=== PATIENT | male | born 1955 | race Caucasian/White ===

== ENCOUNTER 2017-08-04 11:10 | Inpatient (IN) | payer OTHER ==
--- NOTE | 2017-08-04 11:29 | PDOC ---
History of Present Illness - General Chief Complaint: Shortness of Breath Stated Complaint: SHORT OF BREATH Time Seen by Provider: 08/04/17 11:27 - History of Present Illness Initial Comments: 08/04/17 11:39 Chief complaint: Nasal congestion History of present illness: Patient was sent in by his primary physician for low oxygen saturation. During a routine office visit, oxygen saturation was noted to be in the high 80s, decreasing to the low 80s with ambulation. The patient denies chest pain or shortness of breath. His respiratory status is reported as normal. His only complaint is chronic nasal congestion for which she has been evaluated by ENT and begun on antibiotics for sinusitis. Review of systems: As noted above. No chest pain, shortness of breath, dyspnea on exertion, orthopnea, PND, fever/chills, cough, abdominal pain, nausea, vomiting, diarrhea, visual or focal neurologic symptoms, unsteadiness of gait. No calf pain swelling or tenderness. Past medical history: Chronic neck injury on disability. Insulin-dependent diabetes. Chronic sinusitis. No known lung disease including asthma, COPD, emphysema. 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 Smoker, one to 2 packs per day for many years, occasional social alcohol , none recently, no drugs. a stable home Family history: Mother of myocardial infarction in her mid 60s. Otherwise negative including father and siblings. Physical exam: Alert oriented 3, mildly obese, no acute distress, cheerful and cooperative. Afebrile, vital signs stable including oxygen saturation 95% at rest. PERRLA 4 mm, fundi benign with sharp disc margins and good central venous pulsations, no hemorrhages or exudates. Ears and throat clear. Moderate nasal congestion is present bilaterally, without discharge. No obstruction noted on examination. Neck supple without bruit mass or nodes Lungs with bilateral end expiratory wheezes, all lung bethea. No rales or rhonchi. Respiratory rate normal. CV S1 and S2 distant, regular, without murmur rub or gallop, pulses full and symmetric, no JVD or edema no posterior calf swelling or tenderness Abdomen soft nontender without mass or organomegaly Extremities no CCE Skin clear, no rash, adequate turgor and wet mucous membranes Neurological C2 to 12 intact. No focal sensory or motor deficits. Strength full and symmetric. Gait stable and unimpaired. Impression: Marked nasal congestion, chronic sinusitis. Low oxygen saturation, with wheezing, probably due to COPD, less likely pulmonary emboli or acute coronary syndrome Plan: CBC, chemistries, EKG, chest x-ray, further evaluation depending on results. Monitor, oxygen therapy. Past History - Past Medical History Allergies/Adverse Reactions: Allergies Allergy/AdvReac Type Severity Reaction Status Date / Time codeine AdvReac Mild Verified 08/04/17 11:52 Home Medications: Ambulatory Orders Sennosides [Senna Lax] 8.6 mg PO 2 tablets bid tablet 07/24/16 Cefdinir 300 mg PO BID 08/04/17 Cetirizine HCl [Zyrtec -] 10 mg PO DAILY 08/04/17 Docusate Sodium [Colace] 100 mg PO DAILY 08/04/17 Docusate Sodium [Colace] 300 mg PO HS 08/04/17 Insulin Glargine,Hum.rec.anlog [Lantus Solostar PEN (NF)] 18 units SQ AM Metformin HCl [Glucophage] 1,000 mg PO DAILY 08/04/17 Metformin HCl [Glucophage] 500 mg PO HS 08/04/17 Montelukast Na [Singulair -] 10 mg PO HS 08/04/17 Oxycodone HCl 20 mg PO Q6H PRN 08/04/17 Simvastatin 40 mg PO HS 08/04/17 Asthma: Yes COPD: Yes Diabetes: Yes Hypercholesterolemia: Yes - Immunization History Immunization Up to Date: No - Suicide/Smoking/Psychosocial Hx Smoking History: Current every day smoker Have you smoked in the past 12 months: Yes Number of Cigarettes Smoked Daily: 4 'Breaking Loose' booklet given: 08/22/14 Hx Alcohol Use: No Substance Use Type: None ED Treatment Course - LABORATORY CBC & Chemistry Diagram: 08/04/17 12:10 08/04/17 12:10 Medical Decision Making - Medical Decision Making 08/04/17 13:01 EKG reviewed: Normal sinus rhythm 69/m. Normal axes and intervals. Nonspecific T -wave abnormality. No acute ST elevations. No change from prior dated 2015 obtained from primary physician office by fax 08/04/17 13:10 08/04/17 14:33 Chest x-ray: COPD, no acute infiltrates, no effusions Cardiac enzymes negative. White blood count normal. Mild anemia is present. Chemistries without significant abnormalities. Patient's wheezing is improved with nebulizer treatment. He is already on oral cephalosporin for sinusitis. This should cover acute bronchitis. He will be admitted for further evaluation and treatment. *DC/Admit/Observation/Transfer Diagnosis at time of Disposition: Acute exacerbation of chronic bronchitis - Discharge Dispostion Condition at time of disposition: Stable Admit: Yes - Referrals - Patient Instructions - Post Discharge Activity
[2017-08-04] MEDS ORDERED: ALBUTEROL SO4 2.5/IPRATROPIUM 0.5 INH SOL 3 ML VIAL.NEB. NEB ONE ×4 (11:38→14:14)
[2017-08-04 12:38] LABS: EOS % 5.9 % (0-4.5); HEMATOCRIT 31.5 % (35.4-49); HEMOGLOBIN 10.6 GM/dl (11.7-16.9); LYMPH % 27.3 % (8-40); MCH 29.3 pg (25.7-33.7); MCHC 33.7 g/dl (32.0-35.9); MEAN CELL VOLUME 86.9 fl (80-96); MEAN PLT VOLUME 7.2 fl (7.5-11.1); MONO % 9.4 % (3.8-10.2); NEUT % 56.4 % (42.8-82.8); PLATELET COUNT 341 K/MM3 (134-434); RBC 3.63 M/mm3 (4.00-5.60); RDW 11.7 % (11.9-15.9); WHITE BLOOD COUNT 8.7 K/mm3 (4.0-10.8)
[2017-08-04 12:59] LABS: ALBUMIN 3.7 g/dl (3.5-5.0); ALK PHOS 31 U/L (32-92); ANION GAP 6 (8-16); BILIRUBIN,TOTAL 0.4 mg/dl (0.2-1.0); BLOOD UREA NITROGEN 50 mg/dl (7-18); CHLORIDE 102 mmol/L (98-107); CO2 25 mmol/L (22-28); CREATININE 2.2 mg/dl (0.6-1.3); GLUCOSE,RANDOM 144 mg/dl (74-106); POTASSIUM 4.3 mmol/L (3.5-5.1); SGOT/AST 17 U/L (10-42); SGPT/ALT 13 U/L (10-40); SODIUM 133 mmol/L (136-145)
[2017-08-04] MEDS ORDERED: SODIUM CHLORIDE 500 ML IV STA (13:26)
[2017-08-04 13:57] LABS: URINE APPEARANCE Clear; URINE BILIRUBIN Negative (NEGATIVE); URINE BLOOD Negative (NEGATIVE); URINE COLOR YELLOW; URINE GLUCOSE (UA) Negative (NEGATIVE); URINE KETONE Negative (NEGATIVE); URINE LEUK ESTERASE Negative (NEGATIVE); URINE NITRITE Negative (NEGATIVE); URINE PROTEIN Negative (NEGATIVE); URINE UROBILINOGEN 0.2 (0.2-1.0)
--- NOTE | 2017-08-04 15:00 | CON.PULM ---
Consult Consult Specialty:: PULMONARY Referred by:: RICHARD Reason for Consultation:: ACUTE A/E COPD - History of Present Illness Chief Complaint: SOB/BRANCH/NASAL CONGESTION History of Present Illness: 62 WHITE MALE ACTIVE SMOKER WITH H/O DM/HTN/CHRONIC NECK PAIN DUE TO HNP / OPIATE DEPENDANT /COPD/ACTIVE SMOKER L5-S1 RADICULOPATHY/VIT D DEF./HPL/BPH/LOW TESTERONE/ANEMIA OF UNKNOWN ETIOLOGY PRESENTS TO OUTPATIENT CLINIC WITH SOB ON EXERTION. FOUND TO HAVE A RESTING SPO2 OF 87% AND SPO2 82% AFTER BRIEF AMBULATION. PATIENT DOES NOT HAVE HOME O2. HE HAS A CHRONIC COUGH AND REPORTS APNEIC EPISODES AT NIGHT WHILE ASLEEP. HE HAS CHRONIC PAIN IN NECK AND LIMITED ROM. HE IS OPIATE DEPENDANT ON 30 MG OXYCONTIN 4-6 TIMES DAILY. - History Source History Provided By: Patient, Family Member, Medical Record Limitations to Obtaining History: Clinical Condition - Past Medical History EXHIBIT PREPARATOR: Yes: Other (HEADACHES). No: Alzheimer's Cardio/Vascular: Yes: HTN, Hyperlipdemia. No: AFIB, MT Pulmonary: Yes: COPD, Pneumonia, Sleep Apnea, Other (CHRONIC SINUSITIS). No: O2 Dependent Gastrointestinal: No: Ascites Hepatobiliary: No: Cirrhosis Renal/: Yes: Renal Inusuff, BPH Heme/Onc: Yes: Anemia Psych: Yes: Depression Musculoskeletal: Yes: Chronic low back pain, Other (CERVICAL SPINE PAIN) Rheumatology: Yes: Other (HNP C-SPINE) ENT: Yes: Sinusitis Endocrine: Yes: Diabetes Mellitus (KNEE SURGERY) - Past Surgical History Additional Surgical History: KNEE SURGERY/FRACTURED JAW/CERVICAL EPIDURAL INJECTIONS - Alcohol/Substance Use Hx Alcohol Use: No - Smoking History Smoking history: Current every day smoker Have you smoked in the past 12 months: Yes Aproximately how many cigarettes per day: 4 - Social History Usual Living Arrangement: With Spouse Place of : [facility] History of Recent Travel: No Home Medications - Allergies Allergies/Adverse Reactions: Allergies Allergy/AdvReac Type Severity Reaction Status Date / Time codeine AdvReac Mild Verified 08/04/17 11:52 - Home Medications Home Medications: Ambulatory Orders Sennosides [Senna Lax] 8.6 mg PO 2 tablets bid tablet 07/24/16 Cefdinir 300 mg PO BID 08/04/17 Cetirizine HCl [Zyrtec -] 10 mg PO DAILY 08/04/17 Docusate Sodium [Colace] 100 mg PO DAILY 08/04/17 Docusate Sodium [Colace] 300 mg PO HS 08/04/17 Insulin Glargine,Hum.rec.anlog [Lantus Solostar PEN (NF)] 18 units SQ AM Metformin HCl [Glucophage] 1,000 mg PO DAILY 08/04/17 Metformin HCl [Glucophage] 500 mg PO HS 08/04/17 Montelukast Na [Singulair -] 10 mg PO HS 08/04/17 Oxycodone HCl 20 mg PO Q6H PRN 08/04/17 Simvastatin 40 mg PO HS 08/04/17 Family Disease History - Family Disease History Family History: Unremarkable Review of Systems - Review of Systems Constitutional: reports: Lethargy. denies: Fever Eyes: denies: Blurred Vision HENT: denies: Difficult Swallowing Neck: reports: Decreased ROM, Pain on Movement, Stiffness, Tenderness. denies: Swollen Glands Cardiovascular: reports: Shortness of Breath. denies: Chest Pain Respiratory: reports: Cough, Exercise Intolerance, Orthopnea, SOB, SOB on Exertion, Wheezing. denies: Hemoptysis Gastrointestinal: denies: Abdominal Pain Genitourinary: denies: Burning Breasts: reports: No Symptoms Reported Musculoskeletal: reports: Back Pain Neurological: reports: Headache, Pre-Existing Deficit Endocrine: reports: No Symptoms Physical Exam Vital Sings: Vital Signs Temperature 98.4 F 08/04/17 11:25 Pulse Rate 74 08/04/17 13:48 Respiratory Rate 14 08/04/17 13:48 Blood Pressure 100/70 08/04/17 13:48 O2 Sat by Pulse Oximetry (%) 91 L 08/04/17 13:48 Constitutional: Yes: Anxious Eyes: Yes: EOM Intact HENT: Yes: Normocephalic Neck: Yes: Trachea Midline Cardiovascular: Yes: Regular Rate and Rhythm, S1, S2 Respiratory: Yes: Diminished Gastrointestinal: Yes: Normal Bowel Sounds, Soft Musculoskeletal: Yes: Back Pain, Joint Stiffness, Other (C-SPINE DECREASED ROM/ CHRONIC PAIN) Edema: No Psychiatric: Yes: Alert Labs: CBC, BMP 08/04/17 12:10 08/04/17 12:10 REST REVIEWED Imaging - Results Chest X-ray: Report Reviewed, Image Reviewed Ultrasound: Pending Problem List - Problems (1) COPD exacerbation Code(s): J44.1 - CHRONIC OBSTRUCTIVE PULMONARY DISEASE W (ACUTE) EXACERBATION (2) Acute on chronic respiratory failure with hypoxemia Code(s): J96.21 - ACUTE AND CHRONIC RESPIRATORY FAILURE WITH HYPOXIA (3) Anemia Code(s): D64.9 - ANEMIA, UNSPECIFIED (4) Opiate dependence Code(s): F11.20 - OPIOID DEPENDENCE, UNCOMPLICATED (5) BPH (benign prostatic hyperplasia) Code(s): N40.0 - BENIGN PROSTATIC HYPERPLASIA WITHOUT LOWER URINRY TRACT SYMP (6) HTN (hypertension) Code(s): I10 - ESSENTIAL (PRIMARY) HYPERTENSION (7) Hyperlipidemia Code(s): E78.5 - HYPERLIPIDEMIA, UNSPECIFIED (8) HNP (herniated nucleus pulposus) with myelopathy, cervical Code(s): M50.00 - CERVICAL DISC DISORDER WITH MYELOPATHY, UNSP CERVICAL REGION (9) Smoker Code(s): F17.200 - NICOTINE DEPENDENCE, UNSPECIFIED, UNCOMPLICATED Assessment/Plan COMPLICATED PATIENT WITH MULTIPLE ACTIVE MEDICAL PROBLEMS PRESENTS WITH ACUTE ON CHRONIC HYPOXEMIC RESP FAILURE WHICH REQUIRED ADMISSION AND TREATMENT ACTIVE SMOKER WITH COPD/OPIATE DEPENDANCE DUE TO HNP C-SPINE WILL LIKELY NEED HOME O2 UPON DISCHARGE TRIAL OF STEROIDS/O2 SUPPLEMENTATION/BRONCHODILATORS/ANTIBIOTICS/ENT EVALUATION/ PAIN MANAGEMENT WILL NEED A OSAS SCREEN AND PSG/PFT AN OUTPATIENT WOULD NOT INTERRUPT OPIATE DOSE OR SCHEDULE WOULD ALSO SUGGEST STOOL GUIAC PATIENT HAS HGB10 R ELSIE MOBLEY
[2017-08-04 16:14] VITALS: BMI 29.5
[2017-08-04] MEDS: ALBUTEROL SO4 2.5/IPRATROPIUM 0.5 INH SOL 3 ML VIAL.NEB. NEB SCH ×2 (16:14→23:45)
[2017-08-04] MEDS: CEFTRIAXONE 1 GM in DEXTROSE 5%-WATER - 50 ML IVPB SCH (17:44)
[2017-08-04] MEDS: methylPREDNISolone NA SUCC 40 MG/1 ML VIAL IVPUSH SCH ×2 (17:44→21:50)
[2017-08-04] MEDS: oxyCODONE HCL 5 MG TABLET PO SCH ×2 (17:47→23:43)
[2017-08-04] MEDS ORDERED: PT OWN MED DRAWER 7, Y5N ONE (21:46)
[2017-08-04] MEDS: SENNOSIDES 8.6MG TABLET (FP) PO SCH (21:50)
[2017-08-04] MEDS: GABAPENTIN 300 MG CAPSULE (FP) PO SCH (21:50)
[2017-08-04] MEDS: HEPARIN NA (PORCINE) 5,000 UNITS/ML 1ML VIAL SQ SCH (21:51)
[2017-08-04] MEDS: ATORVASTATIN CA 20 MG TABLET (FP) PO SCH (21:51)
[2017-08-04] MEDS: MONTELUKAST NA 10 MG TABLET PO SCH (21:51)
[2017-08-04] MEDS: DOCUSATE SODIUM 100 MG CAPSULE (FP) PO SCH (21:51)
[2017-08-04] MEDS ORDERED: PATIENT'S OWN MEDICATION (NON-FORMULARY) (Simvastatin [Simvastatin] 40 MG) PO SCH (22:00)
[2017-08-04] MEDS: BUDESONIDE/FORMETEROL FUMARATE 160/4.5 mcg INHALER IH SCH (23:45)
--- NOTE | 2017-08-04 23:56 | HP ---
CHIEF COMPLAINT: hypoxia PCP: Twyla HISTORY OF PRESENT ILLNESS: This is a 62 year old male with a significant past medical history of COPD, ENRIQUE who presented to the ED from his PCP office with oxygen saturation in 80s. He denies SOB on exam; however, Dr. Wakefield's note reflects an earlier compaint of SOB on exertion. Pt denies chest pain. ER course was notable for: (1) ox sat 88 RA (2) WBC 8.7 (3) CXR without acute lung disease Recent Travel: pt denies PAST MEDICAL HISTORY: HLD, anemia, DM, COPD, ENRIQUE, chronic neck pain s/p injury Pt denies h/o HTN PAST SURGICAL HISTORY: knee surgery, fractured jaw Social History: Smokin/4 ppd Alcohol: prior Drugs: pt denies Family History: mother ag e76, ovarian CA, [place] age 70 father age 74, lung CA + h/o smoking, abd aneurysm 1 sister/1 brother/1 daughter all alive and well, no PMH Allergies codeine Adverse Reaction (Mild, Verified 08/04/17 11:52) HOME MEDICATIONS: 3 Medication Instructions Recorded Sennosides [Senna Lax] 8.6 mg PO 2 tablets bid tablet 07/24/16 Cefdinir 300 mg PO BID 08/04/17 Cetirizine HCl [Zyrtec -] 10 mg PO DAILY 08/04/17 Docusate Sodium [Colace] 100 mg PO DAILY 08/04/17 Docusate Sodium [Colace] 300 mg PO HS 08/04/17 Insulin Glargine,Hum.rec.anlog 18 units SQ AM 08/04/17 [Lantus Solostar PEN (NF)] Metformin HCl [Glucophage] 1,000 mg PO DAILY 08/04/17 Metformin HCl [Glucophage] 500 mg PO HS 08/04/17 Montelukast Na [Singulair -] 10 mg PO HS 08/04/17 Oxycodone HCl 20 mg PO Q6H PRN 08/04/17 Simvastatin 40 mg PO HS 08/04/17 REVIEW OF SYSTEMS CONSTITUTIONAL: Absent: fever, chills, diaphoresis, generalized weakness, malaise, loss of appetite, weight change HEENT: Absent: rhinorrhea, nasal congestion, throat pain, throat swelling, difficulty swallowing, mouth swelling, ear pain, eye pain, visual changes CARDIOVASCULAR: Absent: chest pain, syncope, palpitations, irregular heart rate, lightheadedness , peripheral edema RESPIRATORY: Present: cough, dyspnea with exertion Absent: shortness of breath, orthopnea, wheezing, stridor, hemoptysis GASTROINTESTINAL: Absent: abdominal pain, abdominal distension, nausea, vomiting, diarrhea, constipation, melena, hematochezia GENITOURINARY: Absent: dysuria, frequency, urgency, hesitancy, hematuria, flank pain, genital pain MUSCULOSKELETAL: Absent: myalgia, arthralgia, joint swelling, back pain, neck pain SKIN: Absent: rash, itching, pallor HEMATOLOGIC/IMMUNOLOGIC: Absent: easy bleeding, easy bruising, lymphadenopathy, frequent infections ENDOCRINE: Absent: unexplained weight gain, unexplained weight loss, heat intolerance, cold intolerance NEUROLOGIC: Absent: headache, focal weakness or paresthesias, dizziness, unsteady gait, seizure, mental status changes, bladder or bowel incontinence PSYCHIATRIC: Absent: anxiety, depression, suicidal or homicidal ideation, hallucinations. PHYSICAL EXAMINATION Vital Signs - 24 hr 3 08/04/17 08/04/17 08/04/17 11:25 12:23 13:48 Temperature 98.4 F Pulse Rate 71 70 Pulse Rate [ 74 Apical] Respiratory 14 Rate Blood Pressure 134/71 Blood Pressure 100/70 [Left Arm] O2 Sat by Pulse 88 L 91 L Oximetry (%) 3 08/04/17 08/04/17 15:57 18:43 Temperature 97.7 F 97.9 F Pulse Rate 72 71 Pulse Rate [ Apical] Respiratory 16 19 Rate Blood Pressure 117/34 147/57 Blood Pressure [Left Arm] O2 Sat by Pulse Oximetry (%) GENERAL: Awake, alert, and fully oriented, in no acute distress. HEAD: Normal with no signs of trauma. EYES: Pupils equal, round and reactive to light, extraocular movements intact, sclera anicteric, conjunctiva clear. No lid lag. EARS, NOSE, THROAT: Ears normal, nares patent, oropharynx clear without exudates. Moist mucous membranes. NECK: Normal range of motion, supple without lymphadenopathy, JVD, or masses. LUNGS: Breath sounds equal, coarse breath sounds bilaterally, occ exp wheeze. No accessory muscle use. HEART: Regular rate and rhythm, normal S1 and S2 without murmur, rub or gallop. ABDOMEN: Soft, nontender, not distended, normoactive bowel sounds, no guarding, no rebound, no masses. No hepatomegaly or splenomegaly. MUSCULOSKELETAL: Normal range of motion at all joints. No bony deformities or tenderness. No CVA tenderness. UPPER EXTREMITIES: 2+ pulses, warm, well-perfused. No cyanosis. No clubbing. No peripheral edema. LOWER EXTREMITIES: 2+ pulses, warm, well-perfused. No calf tenderness. No peripheral edema. NEUROLOGICAL: Cranial nerves II-XII intact. Normal speech. Normal gait. PSYCHIATRIC: Cooperative. Good eye contact. Appropriate mood and affect. SKIN: Warm, dry, normal turgor, no rashes or lesions noted, normal capillary refill. Laboratory Results - last 24 hr 3 08/04/17 08/04/17 08/04/17 12:10 12:10 12:10 13:45 WBC 8.7 RBC 3.63 L Hgb 10.6 L Hct 31.5 L MCV 86.9 MCH 29.3 MCHC 33.7 RDW 11.7 L Plt Count 341 MPV 7.2 L Neutrophils % 56.4 Lymphocytes % 27.3 Monocytes % 9.4 Eosinophils % 5.9 H Basophils % 1.0 D-Dimer 502 H Sodium 133 L Potassium 4.3 Chloride 102 Carbon Dioxide 25 Anion Gap 6 L BUN 50 H D Creatinine 2.2 H D Creat Clearance w eGFR 30.68 Random Glucose 144 H D Calcium 9.0 Total Bilirubin 0.4 D AST 17 D ALT 13 Alkaline Phosphatase 31 L Creatine Kinase 107 Troponin I < 0.03 Total Protein 7.0 Albumin 3.7 Urine Color Urine Appearance Urine pH Ur Specific [place] Urine Protein Urine Glucose (UA) Urine Ketones Urine Blood Urine Nitrite Urine Bilirubin Urine Urobilinogen Ur Leukocyte Esterase 3 Urine Color Yellow 08/04/17 13:40 Urine Appearance Clear 08/04/17 13:40 Urine pH 5.0 (4.5-8) 08/04/17 13:40 Ur Specific [place] 1.025 (1.005-1.025) 08/04/17 13:40 Urine Protein Negative (NEGATIVE) 08/04/17 13:40 Urine Glucose (UA) Negative (NEGATIVE) 08/04/17 13:40 Urine Ketones Negative (NEGATIVE) 08/04/17 13:40 Urine Blood Negative (NEGATIVE) 08/04/17 13:40 Urine Nitrite Negative (NEGATIVE) 08/04/17 13:40 Urine Bilirubin Negative (NEGATIVE) 08/04/17 13:40 Ur Leukocyte Esterase Negative (NEGATIVE) 08/04/17 13:40 Radiology Reports venous duplex, b/l LE IMPRESSION: No evidence of deep venous thrombosis. R eported By: Jj Sterling MD 08/04/17 1458 CXR-PA&Lat IMPRESSION: No significant interval change or acute lung disease is present Reported By: Henri Grant MD 08/04/17 1222 ASSESSMENT/PLAN 62yM with PMH HLD, anemia, DM, COPD, ENRIQUE, chronic neck pain s/p injury presented to the ED from his PCP office for hypoxia. Also reports chronic cough. COPD exac - cont ceftriaxone as ordered - cont methylprednisolone - cont duonebs - cont symbicort - pulm consult appreciated ENRIQUE - will need outpatient sleep study DM - home lantus changed to formulary levemir - metformin held - BGM AC/HS with novolog sliding scale HLD - home simvastatin converted to formulary lipitor chronic neck pain - cont home oxycodone DVT PPX - heparin 5000u BID FEN - pt tolerating po - BMP in am - diabetic diet as tolerated Dispo: pt currently requires inpatient management of his emergent condition. Visit type - Emergency Visit Emergency Visit: Yes ED Registration Date: 08/04/17 Care time: The patient presented to the Emergency Department on the above date and was hospitalized for further evaluation of their emergent condition. - New Patient This patient is new to me today: Yes Date on this admission: 08/04/17 - Critical Care Critical Care patient: No Hospitalist Screening - Colonoscopy Questionnaire Colonoscopy Questionnaire: Colonoscopy Questionnaire - Patient: 50 - 75 years old and never had a screening colonoscopy: No History of colon or rectal polyps, or CA: No History of IBD, Crohn's disease or UC: No History of abdominal radiation therapy as a child: No - Relative: 1 with colon or rectal CA, or polyps at age 60 or younger: No Colon or rectal CA diagnosed at age 45 or younger: No Multiple relatives with colon or rectal CA: No - Outcome: Screening Result: Negative Screen
[2017-08-05] MEDS: methylPREDNISolone NA SUCC 40 MG/1 ML VIAL IVPUSH SCH ×4 (02:58→22:17)
[2017-08-05] MEDS: oxyCODONE HCL 5 MG TABLET PO SCH ×2 (05:53→12:00)
[2017-08-05] MEDS ORDERED: INSULIN GLARGINE HUM REC ANLOG 18 UNIT SQ SCH (07:00)
--- NOTE | 2017-08-05 07:04 | PN ---
Physical Exam: SUBJECTIVE: Patient seen and examined, patient reports ongoing cough with dyspnea upon exertion. OBJECTIVE: Patient is a 62 y/o male with a past medical history of hypertension, depression, tobacco smoker, and DM. Patient was admitted from the emergency department for emergent condition. Vital Signs Period Temp Pulse Resp BP Sys/Mercedes Pulse Ox Last 24 Hr 97.7 F-98.4 F 70-74 14-19 100-147/34-71 88-92 GENERAL: The patient is awake, alert, and fully oriented, in no acute distress. HEAD: Normal with no signs of trauma. EYES: PERRL, extraocular movements intact, sclera anicteric, conjunctiva clear. No ptosis. ENT: Ears normal, nares patent, oropharynx clear without exudates, moist mucous membranes. NECK: Trachea midline, full range of motion, supple. LUNGS: Breath sounds equal, right upper lobe inspiratory wheeze, clear to bases , no crackles, no accessory muscle use. HEART: Regular rate and rhythm, S1, S2 without murmur, rub or gallop. ABDOMEN: Soft, nontender, nondistended, normoactive bowel sounds, no guarding, no rebound, no hepatosplenomegaly, no masses. EXTREMITIES: 2+ pulses, warm, well-perfused, no edema. NEUROLOGICAL: Cranial nerves II through XII grossly intact. Normal speech, gait not observed. PSYCH: Normal mood, normal affect. SKIN: Warm, dry, normal turgor, no rashes or lesions noted Laboratory Results - last 24 hr 08/04/17 08/04/17 08/04/17 12:10 12:10 12:10 WBC 8.7 RBC 3.63 L Hgb 10.6 L Hct 31.5 L MCV 86.9 MCH 29.3 MCHC 33.7 RDW 11.7 L Plt Count 341 MPV 7.2 L Neutrophils % 56.4 Lymphocytes % 27.3 Monocytes % 9.4 Eosinophils % 5.9 H Basophils % 1.0 D-Dimer Sodium 133 L Potassium 4.3 Chloride 102 Carbon Dioxide 25 Anion Gap 6 L BUN 50 H D Creatinine 2.2 H D Creat Clearance w eGFR 30.68 POC Glucometer Random Glucose 144 H D Calcium 9.0 Total Bilirubin 0.4 D AST 17 D ALT 13 Alkaline Phosphatase 31 L Creatine Kinase 107 Troponin I < 0.03 Total Protein 7.0 Albumin 3.7 Urine Color Urine Appearance Urine pH Ur Specific [place] Urine Protein Urine Glucose (UA) Urine Ketones Urine Blood Urine Nitrite Urine Bilirubin Urine Urobilinogen Ur Leukocyte Esterase 08/04/17 08/04/17 08/05/17 13:40 13:45 05:52 WBC RBC Hgb Hct MCV MCH MCHC RDW Plt Count MPV Neutrophils % Lymphocytes % Monocytes % Eosinophils % Basophils % D-Dimer 502 H Sodium Potassium Chloride Carbon Dioxide Anion Gap BUN Creatinine Creat Clearance w eGFR POC Glucometer 247 Random Glucose Calcium Total Bilirubin AST ALT Alkaline Phosphatase Creatine Kinase Troponin I Total Protein Albumin Urine Color Yellow Urine Appearance Clear Urine pH 5.0 Ur Specific [place] 1.025 Urine Protein Negative Urine Glucose (UA) Negative Urine Ketones Negative Urine Blood Negative Urine Nitrite Negative Urine Bilirubin Negative Urine Urobilinogen 0.2 Ur Leukocyte Esterase Negative Active Medications Generic Name Dose Route Start Last Admin Trade Name Freq PRN Reason Stop Dose Admin Albuterol/Ipratropium 1 amp 08/04/17 16:00 08/04/17 23:45 Duoneb - NEB Not Given RQID [facility] Atorvastatin Calcium 20 mg 08/04/17 22:00 08/04/17 21:51 Lipitor - PO 20 mg HS CHANO Administration Budesonide/Formoterol Fumarate 1 puff 08/04/17 22:00 08/04/17 23:45 Symbicort 160/4.5mcg - IH Not Given BID [facility] Cholecalciferol 4,000 unit 08/05/17 10:00 Vitamin D3 - PO DAILY [facility] Docusate Sodium 300 mg 08/04/17 22:00 08/04/17 21:51 Colace - PO 300 mg HS CHANO Administration Duloxetine HCl 30 mg 08/05/17 10:00 Cymbalta - PO DAILY [facility] Fenofibric Acid 135 mg 08/05/17 10:00 Trilipix - PO DAILY [facility] Gabapentin 600 mg 08/04/17 22:00 08/04/17 21:50 Neurontin - PO 600 mg BID [facility]O Administration Heparin Sodium (Porcine) 5,000 unit 08/04/17 22:00 08/04/17 21:51 Heparin - SQ 5,000 unit BID [facility] Administration Ceftriaxone Sodium 1 gm/ 50 mls @ 100 mls/hr 08/04/17 16:45 08/04/17 17:44 Dextrose IVPB 100 mls/hr DAILY [facility] Administration Insulin Aspart 1 vial 08/05/17 22:00 Novolog Vial Sliding Scale - SQ HS [facility] Protocol Insulin Aspart 1 vial 08/05/17 07:00 Novolog Vial Sliding Scale - SQ TIDAC [facility] Protocol Insulin Detemir 18 units 08/05/17 07:00 Levemir Vial SQ AM [facility] Loratadine 10 mg 08/05/17 10:00 Claritin - PO DAILY [facility] Losartan Potassium 100 mg 08/05/17 10:00 Cozaar - PO DAILY [facility] Methylprednisolone Sodium Succinate 40 mg 08/04/17 16:45 08/05/17 02:58 Solu-Medrol - IVPUSH 40 mg Q6H-IV [facility] Administration Montelukast Sodium 10 mg 08/04/17 22:00 08/04/17 21:51 Singulair - PO 10 mg HS [facility] Administration Fcgun-4-Vguo Ethyl Esters 1 gm 08/05/17 10:00 Lovaza - PO DAILY [facility] Oxycodone HCl 20 mg 08/04/17 18:00 08/05/17 05:53 Roxicodone - PO 20 mg Q6H [facility] Administration Senna 2 tab 08/04/17 22:00 08/04/17 21:50 Senna - PO 2 tab BID [facility] Administration Radiology Reports venous duplex, b/l LE IMPRESSION: No evidence of deep venous thrombosis. R eported By: Jj Sterling MD 08/04/17 1458 CXR-PA&Lat IMPRESSION: No significant interval change or acute lung disease is present Reported By: Henri Grant MD 08/04/17 1222 ASSESSMENT/PLAN 1) pulm copd excerbation - wheezing noted on exam, continue solumedrol, symbicort, and albuterol nebulizer - chest xray reviewed, pending ct of chest * - keep spo2 above 92% with supplemental O2 - pulmonary consulted and following ENRIQUE - will need outpatient sleep studay 2) endo DM - pending hgb a1c, continue levermir and insulin sliding scale 3) cardiovascular hypertension - continue losartan, b/p at goal - pending echo hyperlipidemia - continue simvastin 5) ms chronic neck pain - continue home dose oxycodone 6) nephrology mumtaz - improved with IVF, repeat creatine 1.4 close to baseline 1.1, DVT PPX - heparin 5000u BID FEN - pt tolerating po - BMP in am - diabetic diet as tolerated Dispo: pt currently requires inpatient management of his emergent condition.
[2017-08-05 08:18] LABS: HEMATOCRIT 32.8 % (35.4-49); HEMOGLOBIN 11.1 GM/dl (11.7-16.9); MCH 29.4 pg (25.7-33.7); MCHC 33.7 g/dl (32.0-35.9); MEAN CELL VOLUME 87.3 fl (80-96); MEAN PLT VOLUME 7.6 fl (7.5-11.1); PLATELET COUNT 362 K/MM3 (134-434); RBC 3.76 M/mm3 (4.00-5.60); RDW 11.8 % (11.9-15.9); WHITE BLOOD COUNT 12.8 K/mm3 (4.0-10.8)
[2017-08-05] MEDS: INSULIN DETEMIR 100 UNITS/ML MDV SQ SCH (08:20)
[2017-08-05] MEDS: ALBUTEROL SO4 2.5/IPRATROPIUM 0.5 INH SOL 3 ML VIAL.NEB. NEB SCH ×4 (08:50→20:44)
[2017-08-05 09:17] LABS: ANION GAP 9 (8-16); BLOOD UREA NITROGEN 42 mg/dl (7-18); CALCIUM 9.1 mg/dl (8.4-10.2); CHLORIDE 103 mmol/L (98-107); CO2 21 mmol/L (22-28); CREATININE 1.4 mg/dl (0.6-1.3); GLUCOSE,RANDOM 228 mg/dl (74-106); MAGNESIUM 1.5 mg/dL (1.8-2.4); PHOSPHOROUS 2.6 mg/dl (2.5-4.6); POTASSIUM 5.1 mmol/L (3.5-5.1); SODIUM 133 mmol/L (136-145)
--- NOTE | 2017-08-05 09:27 | PN ---
Progress Note (short form) - Note Progress Note: Patient seen and labs reviewed. Patient with COPD/exacerbation and anemia ? etiology. Reports having mild anemia in past which resolved ??details. Had colonoscopy (Dr Esparza) at age 52/ 10 years ago ?polyp. Has been on baby ASA daily No melena, epigastric pain, N/V and no recent change in appetite or weight. -FH for GI illness/malignancy. May have had GI bleed causing anemia and increased SOB; iron studies pending along with stool guaiac testing. In view of current SOB, would suggest: d/c ASA empiric Rx with PPI or H2 louisa await serum iron studies and stool guaiac when stable, would suggest both EGD and colonoscopy Will follow
[2017-08-05] MEDS ORDERED: MAGNESIUM SULFATE 2 GM in SODIUM CHLORIDE 100 ML IVPB ONE (09:55)
[2017-08-05] MEDS ORDERED: PATIENT'S OWN MEDICATION (NON-FORMULARY) (Fenofibrate [Fenofibrate] 160 MG) PO SCH (10:00)
[2017-08-05] MEDS: CEFTRIAXONE 1 GM in DEXTROSE 5%-WATER - 50 ML IVPB SCH (10:00)
--- NOTE | 2017-08-05 10:11 | PN ---
Progress Note, Physician History of Present Illness: PULMONARY ALERT,FEELING BETTER,LESS DYSPNEIC,+ COUGH - Current Medication List Current Medications: Active Medications Albuterol/Ipratropium (Duoneb -) 1 amp NEB RQID [facility] Last Admin: 08/05/17 08:50 Dose: 1 amp Atorvastatin Calcium (Lipitor -) 20 mg PO HS [facility] Last Admin: 08/04/17 21:51 Dose: 20 mg Budesonide/Formoterol Fumarate (Symbicort 160/4.5mcg -) 1 puff IH BID [facility] Last Admin: 08/04/17 23:45 Dose: Not Given Cholecalciferol (Vitamin D3 -) 4,000 unit PO DAILY [facility] Docusate Sodium (Colace -) 300 mg PO HS [facility] Last Admin: 08/04/17 21:51 Dose: 300 mg Duloxetine HCl (Cymbalta -) 30 mg PO DAILY [facility] Fenofibric Acid (Trilipix -) 135 mg PO DAILY [facility] Gabapentin (Neurontin -) 600 mg PO BID [facility] Last Admin: 08/04/17 21:50 Dose: 600 mg Guaifenesin (Mucinex -) 600 mg PO BID [facility] Heparin Sodium (Porcine) (Heparin -) 5,000 unit SQ BID [facility] Last Admin: 08/04/17 21:51 Dose: 5,000 unit MAGNESIUM SULFATE IN WATER (Magnesium Sulf 2 G/50 Ml Bag) 2 gm in 50 mls @ 50 mls/hr IVPB ONCE ONE Stop: 08/05/17 11:14 CEFTRIAXONE 1 G/50 ML PREMIX (Ceftriaxone 1 Gm-D5w Bag) 50 mls @ 100 mls/hr IVPB DAILY@1600 [facility] Insulin Aspart (Novolog Vial Sliding Scale -) 1 vial SQ HS [facility] PRN Reason: Protocol Insulin Aspart (Novolog Vial Sliding Scale -) 1 vial SQ TIDAC [facility] PRN Reason: Protocol Insulin Detemir (Levemir Vial) 18 units SQ AM [facility] Loratadine (Claritin -) 10 mg PO DAILY [facility] Losartan Potassium (Cozaar -) 100 mg PO DAILY [facility] Methylprednisolone Sodium Succinate (Solu-Medrol -) 40 mg IVPUSH Q6H-IV [facility] Last Admin: 08/05/17 02:58 Dose: 40 mg Montelukast Sodium (Singulair -) 10 mg PO [facility] Last Admin: 08/04/17 21:51 Dose: 10 mg [id number] Ethyl Esters (Lovaza -) 1 gm PO DAILY [facility] Oxycodone HCl (Roxicodone -) 20 mg PO Q6H [facility] Last Admin: 08/05/17 05:53 Dose: 20 mg Pantoprazole Sodium (Protonix -) 40 mg PO DAILY [facility] Senna (Senna -) 2 tab PO BID [facility] Last Admin: 08/04/17 21:50 Dose: 2 tab - Objective Vital Signs: Vital Signs Temperature 97.9 F 08/04/17 18:43 Pulse Rate 71 08/04/17 18:43 Respiratory Rate 19 08/04/17 21:00 Blood Pressure 147/57 08/04/17 18:43 O2 Sat by Pulse Oximetry (%) 92 L 08/04/17 22:36 Constitutional: Yes: Well Nourished, Calm Eyes: Yes: WNL HENT: Yes: WNL Neck: Yes: WNL Cardiovascular: Yes: Regular Rate and Rhythm, S1, S2 Respiratory: Yes: Wheezes (SCATTERED KIMMY WHEEZES) Gastrointestinal: Yes: Normal Bowel Sounds, Soft Extremities: Yes: WNL Labs: CBC, BMP 08/05/17 07:30 08/05/17 07:30 Assessment/Plan Problem List - Problems (1) COPD exacerbation Code(s): J44.1 - CHRONIC OBSTRUCTIVE PULMONARY DISEASE W (ACUTE) EXACERBATION (2) Acute on chronic respiratory failure with hypoxemia Code(s): J96.21 - ACUTE AND CHRONIC RESPIRATORY FAILURE WITH HYPOXIA (3) Anemia Code(s): D64.9 - ANEMIA, UNSPECIFIED (4) Opiate dependence Code(s): F11.20 - OPIOID DEPENDENCE, UNCOMPLICATED (5) BPH (benign prostatic hyperplasia) Code(s): N40.0 - BENIGN PROSTATIC HYPERPLASIA WITHOUT LOWER URINRY TRACT SYMP (6) HTN (hypertension) Code(s): I10 - ESSENTIAL (PRIMARY) HYPERTENSION (7) Hyperlipidemia Code(s): E78.5 - HYPERLIPIDEMIA, UNSPECIFIED (8) HNP (herniated nucleus pulposus) with myelopathy, cervical Code(s): M50.00 - CERVICAL DISC DISORDER WITH MYELOPATHY, UNSP CERVICAL REGION (9) Smoker Code(s): F17.200 - NICOTINE DEPENDENCE, UNSPECIFIED, UNCOMPLICATED Assessment/Plan ACUTE ON CHRONIC HYPOXEMIC RESP FAILURE ACTIVE SMOKER WITH COPD OPIATE DEPENDANCE DUE TO HNP C-SPINE WILL LIKELY NEED HOME O2 UPON DISCHARGE ANEMIA STEROIDS SAME DOSE O2 SUPPLEMENTATION BRONCHODILATORS ANTIBIOTICS ENT EVALUATION/PAIN MANAGEMENT WILL NEED A OSAS SCREEN AND PSG PFTS CHEST CT DR MEDINA
[2017-08-05] MEDS ORDERED: MAGNESIUM SULFATE IN WATER 2 GM/50 ML IVPB IVPB ONE (10:15)
[2017-08-05] MEDS: LORATADINE 10 MG TABLET PO SCH (10:25)
[2017-08-05] MEDS: DULoxetine HCL 30 MG CAPSULE.DR (FP) PO SCH (10:25)
[2017-08-05] MEDS: LOSARTAN POTASSIUM 50 MG TABLET (FP) PO SCH (10:25)
[2017-08-05] MEDS: GABAPENTIN 300 MG CAPSULE (FP) PO SCH ×2 (10:26→22:16)
[2017-08-05] MEDS: OMEGA-3 ACID ETHYL ESTERS (FATTY-ACIDS) 1 GM CAPSULE (FP) PO SCH (10:26)
[2017-08-05] MEDS: guaiFENesin 600 MG TABLET.ER (FP) PO SCH ×2 (10:26→22:16)
[2017-08-05] MEDS: BUDESONIDE/FORMETEROL FUMARATE 160/4.5 mcg INHALER IH SCH ×2 (10:27→22:24)
[2017-08-05] MEDS: SENNOSIDES 8.6MG TABLET (FP) PO SCH ×2 (10:27→22:16)
[2017-08-05] MEDS: PANTOPRAZOLE 40 MG TABLET (FP) PO SCH (10:27)
--- NOTE | 2017-08-05 10:27 | CONS ---
DATE OF CONSULTATION: DATE OF DICTATION: 08/05/2017 HISTORY OF PRESENT ILLNESS: Asked to evaluate this 62-year-old gentleman with anemia and possible occult GI blood loss. The patient has a history of COPD with admission with increased shortness of breath. He also has a history of anemia in the past of unclear etiology which he states improved without intervention several months ago. He also has a history of colonoscopy at age 52, 10 years ago, by Dr. Esparza and believes a polyp may have been removed at that time. He does take an aspirin daily. He also continues to smoke a quarter pack per day of cigarettes. The patient was admitted with increased shortness of breath and an O2 saturation of 88% on room air. The hospital course was notable for laboratory tests showing a hemoglobin of 10.6 with hematocrit of 31.5%, MCV of 86.9. His chemistry panel included an elevated BUN and creatinine level which today are BUN 42 and creatinine 1.4. His iron studies are pending as are a stool test for occult blood. The patient denies any epigastric pain, nausea, vomiting. He does not have any heartburn or dysphagia. His appetite and weight have remained relatively stable. He has regular bowel movements, brown in color and has not seen any melena or bright-red blood per rectum. There is no family history of GI illness or malignancy. PHYSICAL EXAMINATION:General: The patient is a well-developed, ill-appearing gentleman using a nebulizer/ Inhaler with mild resting shortness of breath. HEENT: He has slightly pale conjunctivae. No icterus. Lungs: Breath sounds are bilateral with no obvious wheezing currently. Abdomen: Soft, flat, nontender. ASSESSMENT: Patient with moderate anemia which is significant in the setting of chronic obstructive pulmonary disease. His exacerbation may be related to the anemia, although it is unclear whether this is acute or chronic. He does not have microcytic indices or evidence of significant bleeding at the present time based on brown stool. However, the stool Hemoccult is pending and the patient could have had a drop in the blood count several days ago. His iron studies are also pending. RECOMMENDATIONS: In view of the patient's age and possible history of a polyp in the past, a colonoscopy would be suggested in the near future when his respiratory status is improved. In addition, he should have an upper endoscopy and be taken off of aspirin for the possibility of an occult bleed related to being on the blood thinner/aspirin. Would also empirically start patient on either an H2 louisa or PPI for the possibility of gastritis or peptic disease with GI bleeding. Will follow expectantly and can arrange GI endoscopy when stable from a pulmonary standpoint either as an inpatient or outpatient. Thank you. DANIEL TEAGUE M.D. [id number]
[2017-08-05] MEDS: FENOFIBRIC ACID 135 MG CAP PO SCH (10:28)
[2017-08-05] MEDS: INSULIN SLIDING SCALE (NOVOLOG) 1 VIAL SQ SCH ×2 (11:18→17:13)
[2017-08-05] MEDS: HEPARIN NA (PORCINE) 5,000 UNITS/ML 1ML VIAL SQ SCH ×2 (11:26→22:15)
[2017-08-05 11:29] LABS: PLATELET ESTIMATE SLT INCREASE
[2017-08-05] MEDS: CHOLECALCIFEROL (VITAMIN D3) 1,000 UNIT TABLET (FP) PO SCH (11:29)
--- NOTE | 2017-08-05 14:13 | EKG ---
Test Reason : Blood Pressure : / mmHG Vent. Rate : 069 BPM Atrial Rate : 069 BPM P-R Int : 178 ms QRS Dur : 096 ms QT Int : 388 ms P-R-T Axes : 064 084 072 degrees QTc Int : 415 ms NORMAL SINUS RHYTHM NONSPECIFIC T WAVE ABNORMALITY ABNORMAL ECG NO PREVIOUS ECGS AVAILABLE Confirmed by GORDON MOBLEY, UYEN ([id number]) on 08/05/2017 2:13:29 PM Referred By: DR HAZEL Confirmed By:UYEN LEYVA MD
[2017-08-05] MEDS ORDERED: CEFTRIAXONE 1 G/50 ML PREMIX 50 ML IVPB SCH (16:00)
[2017-08-05] MEDS ORDERED: INSULIN SLIDING SCALE (NOVOLOG) 1 VIAL SQ SCH (22:00)
[2017-08-05] MEDS: DOCUSATE SODIUM 100 MG CAPSULE (FP) PO SCH (22:16)
[2017-08-05] MEDS: MONTELUKAST NA 10 MG TABLET PO SCH (22:16)
[2017-08-05] MEDS: ATORVASTATIN CA 20 MG TABLET (FP) PO SCH (22:16)
[2017-08-05] MEDS ORDERED: PT OWN MED DRAWER 7, Y5N ONE (22:21)
[2017-08-06] MEDS: oxyCODONE HCL 5 MG TABLET PO SCH ×4 (00:17→11:07)
[2017-08-06] MEDS: methylPREDNISolone NA SUCC 40 MG/1 ML VIAL IVPUSH SCH ×2 (02:35→09:57)
[2017-08-06 05:46] VITALS: TEMP 98
[2017-08-06] MEDS: INSULIN SLIDING SCALE (NOVOLOG) 1 VIAL SQ SCH ×3 (07:16→11:08)
[2017-08-06] MEDS ORDERED: INSULIN (NOVOLOG) ASPART 100 UNITS/ML 10ML VIAL ONE ×2 (08:08→11:04)
[2017-08-06 08:09] LABS: SERUM IRON SATURATION 25 % (15-55); TOTAL IRON BINDING CAPACITY 375 ug/dL (250-450); UIBC 283 ug/dL (111-343)
[2017-08-06] MEDS: INSULIN DETEMIR 100 UNITS/ML MDV SQ SCH (08:12)
[2017-08-06 08:48] LABS: HEMATOCRIT 30.8 % (35.4-49); HEMOGLOBIN 10.4 GM/dl (11.7-16.9); LYMPH % 5.3 % (8-40); MCH 29.5 pg (25.7-33.7); MCHC 33.8 g/dl (32.0-35.9); MEAN CELL VOLUME 87.3 fl (80-96); MEAN PLT VOLUME 7.8 fl (7.5-11.1); MONO % 2.5 % (3.8-10.2); NEUT % 92.2 % (42.8-82.8); PLATELET COUNT 329 K/MM3 (134-434); RBC 3.53 M/mm3 (4.00-5.60); RDW 11.7 % (11.9-15.9)
[2017-08-06] MEDS: ALBUTEROL SO4 2.5/IPRATROPIUM 0.5 INH SOL 3 ML VIAL.NEB. NEB SCH ×2 (09:00→12:55)
[2017-08-06 09:12] LABS: ALBUMIN 3.6 g/dl (3.5-5.0); ALK PHOS 32 U/L (32-92); ANION GAP 8 (8-16); BLOOD UREA NITROGEN 40 mg/dl (7-18); CALCIUM 9.4 mg/dl (8.4-10.2); CHLORIDE 103 mmol/L (98-107); CO2 23 mmol/L (22-28); CREATININE 1.3 mg/dl (0.6-1.3); GLUCOSE,RANDOM 262 mg/dl (74-106); MAGNESIUM 1.7 mg/dL (1.8-2.4); PHOSPHOROUS 3.9 mg/dl (2.5-4.6); POTASSIUM 5.2 mmol/L (3.5-5.1); SGOT/AST 15 U/L (10-42); SGPT/ALT 11 U/L (10-40); SODIUM 134 mmol/L (136-145)
[2017-08-06] MEDS ORDERED: PT OWN MED DRAWER 7, Y5N ONE (09:18)
[2017-08-06 09:42] LABS: BILIRUBIN,TOTAL 0.3 mg/dl (0.2-1.0)
[2017-08-06 09:56] VITALS: BP 169/64
[2017-08-06] MEDS: OMEGA-3 ACID ETHYL ESTERS (FATTY-ACIDS) 1 GM CAPSULE (FP) PO SCH (09:57)
[2017-08-06] MEDS: FENOFIBRIC ACID 135 MG CAP PO SCH (09:58)
[2017-08-06] MEDS: GABAPENTIN 300 MG CAPSULE (FP) PO SCH (09:58)
[2017-08-06] MEDS: guaiFENesin 600 MG TABLET.ER (FP) PO SCH (09:58)
[2017-08-06] MEDS: HEPARIN NA (PORCINE) 5,000 UNITS/ML 1ML VIAL SQ SCH (09:58)
[2017-08-06] MEDS: PANTOPRAZOLE 40 MG TABLET (FP) PO SCH (09:58)
[2017-08-06] MEDS: LORATADINE 10 MG TABLET PO SCH (09:58)
[2017-08-06] MEDS: LOSARTAN POTASSIUM 50 MG TABLET (FP) PO SCH (09:58)
[2017-08-06] MEDS: DULoxetine HCL 30 MG CAPSULE.DR (FP) PO SCH (09:58)
[2017-08-06] MEDS: SENNOSIDES 8.6MG TABLET (FP) PO SCH (09:58)
[2017-08-06] MEDS: BUDESONIDE/FORMETEROL FUMARATE 160/4.5 mcg INHALER IH SCH (09:59)
[2017-08-06] MEDS: CHOLECALCIFEROL (VITAMIN D3) 1,000 UNIT TABLET (FP) PO SCH (09:59)
[2017-08-06] MEDS ORDERED: NICOTINE 21 MG/24 HOURS TOPICAL PATCH TD SCH (10:00)
--- NOTE | 2017-08-06 11:17 | PN ---
Progress Note (short form) - Note Progress Note: PULMONARY VSS/AFEBRILE NASAL CONGESTION CONTINUES ANICTERIC DIMINISHED BREATH SOUNDS S1S2 BS+ NO EDEMA LABS/MEDS/NOTES/IMAGES/GI EVAL/ REVIEWED SINUS XRAY PENDING COMPLICATED PATIENT WITH MULTIPLE ACTIVE MEDICAL PROBLEMS PRESENTS WITH ACUTE ON CHRONIC HYPOXEMIC RESP FAILURE WHICH REQUIRED ADMISSION AND TREATMENT ACTIVE SMOKER WITH COPD/OPIATE DEPENDANCE DUE TO HNP C-SPINE WILL LIKELY NEED HOME O2 UPON DISCHARGE TRIAL OF STEROIDS/O2 SUPPLEMENTATION/BRONCHODILATORS/ANTIBIOTICS/ENT EVALUATION/ PAIN MANAGEMENT WILL NEED A OSAS SCREEN AND PSG/PFT AN OUTPATIENT WOULD NOT INTERRUPT OPIATE DOSE OR SCHEDULE CHECK SPO2 ON R/A PRE/POST AMB STOOL GUIAC IS PENDING NO OBJECTION TO CONTINUING TREATMENT AN OUTPATIENT WOULD NEED O2 SET UP PRIOR TO DISCHARGE IF REQUIRED R ELSIE MOBLEY Problem List - Problems (1) COPD exacerbation Code(s): J44.1 - CHRONIC OBSTRUCTIVE PULMONARY DISEASE W (ACUTE) EXACERBATION (2) Acute on chronic respiratory failure with hypoxemia Code(s): J96.21 - ACUTE AND CHRONIC RESPIRATORY FAILURE WITH HYPOXIA (3) Anemia Code(s): D64.9 - ANEMIA, UNSPECIFIED (4) Opiate dependence Code(s): F11.20 - OPIOID DEPENDENCE, UNCOMPLICATED (5) BPH (benign prostatic hyperplasia) Code(s): N40.0 - BENIGN PROSTATIC HYPERPLASIA WITHOUT LOWER URINRY TRACT SYMP (6) HTN (hypertension) Code(s): I10 - ESSENTIAL (PRIMARY) HYPERTENSION (7) Hyperlipidemia Code(s): E78.5 - HYPERLIPIDEMIA, UNSPECIFIED (8) HNP (herniated nucleus pulposus) with myelopathy, cervical Code(s): M50.00 - CERVICAL DISC DISORDER WITH MYELOPATHY, UNSP CERVICAL REGION (9) Smoker Code(s): F17.200 - NICOTINE DEPENDENCE, UNSPECIFIED, UNCOMPLICATED
[2017-08-06 11:41] VITALS: PULSE 75
--- NOTE | 2017-08-06 13:22 | HP ---
CHIEF COMPLAINT: PCP: HISTORY OF PRESENT ILLNESS: ER course was notable for: (1) (2) (3) Recent Travel: PAST MEDICAL HISTORY: PAST SURGICAL HISTORY: Social History: Smoking: Alcohol: Drugs: Family History: Allergies codeine Adverse Reaction (Mild, Verified 08/04/17 11:52) HOME MEDICATIONS: Home Medications Medication Instructions Recorded Sennosides [Senna Lax] 8.6 mg PO 2 tablets bid tablet 07/24/16 Cefdinir 300 mg PO BID 08/04/17 Cetirizine HCl [Zyrtec -] 10 mg PO DAILY 08/04/17 Docusate Sodium [Colace] 100 mg PO DAILY 08/04/17 Docusate Sodium [Colace] 300 mg PO HS 08/04/17 Insulin Glargine,Hum.rec.anlog 18 units SQ AM 08/04/17 [Lantus Solostar PEN (NF)] Metformin HCl [Glucophage] 1,000 mg PO DAILY 08/04/17 Metformin HCl [Glucophage] 500 mg PO HS 08/04/17 Montelukast Na [Singulair -] 10 mg PO HS 08/04/17 Oxycodone HCl 20 mg PO Q6H PRN 08/04/17 Simvastatin 40 mg PO HS 08/04/17 REVIEW OF SYSTEMS CONSTITUTIONAL: Absent: fever, chills, diaphoresis, generalized weakness, malaise, loss of appetite, weight change HEENT: Absent: rhinorrhea, nasal congestion, throat pain, throat swelling, difficulty swallowing, mouth swelling, ear pain, eye pain, visual changes CARDIOVASCULAR: Absent: chest pain, syncope, palpitations, irregular heart rate, lightheadedness , peripheral edema RESPIRATORY: Absent: cough, shortness of breath, dyspnea with exertion, orthopnea, wheezing, stridor, hemoptysis GASTROINTESTINAL: Absent: abdominal pain, abdominal distension, nausea, vomiting, diarrhea, constipation, melena, hematochezia GENITOURINARY: Absent: dysuria, frequency, urgency, hesitancy, hematuria, flank pain, genital pain MUSCULOSKELETAL: Absent: myalgia, arthralgia, joint swelling, back pain, neck pain SKIN: Absent: rash, itching, pallor HEMATOLOGIC/IMMUNOLOGIC: Absent: easy bleeding, easy bruising, lymphadenopathy, frequent infections ENDOCRINE: Absent: unexplained weight gain, unexplained weight loss, heat intolerance, cold intolerance NEUROLOGIC: Absent: headache, focal weakness or paresthesias, dizziness, unsteady gait, seizure, mental status changes, bladder or bowel incontinence PSYCHIATRIC: Absent: anxiety, depression, suicidal or homicidal ideation, hallucinations. PHYSICAL EXAMINATION Vital Signs - 24 hr 08/05/17 08/05/17 08/05/17 14:27 21:00 22:00 Temperature 98.4 F 98.1 F Pulse Rate 67 74 Respiratory 19 19 19 Rate Blood Pressure 171/73 154/55 O2 Sat by Pulse 96 96 Oximetry (%) 08/06/17 08/06/17 08/06/17 05:45 09:55 11:40 Temperature 98.0 F 98.0 F Pulse Rate 66 65 75 Respiratory 20 Rate Blood Pressure 118/49 169/64 O2 Sat by Pulse 99 94 L Oximetry (%) GENERAL: Awake, alert, and fully oriented, in no acute distress. HEAD: Normal with no signs of trauma. EYES: Pupils equal, round and reactive to light, extraocular movements intact, sclera anicteric, conjunctiva clear. No lid lag. EARS, NOSE, THROAT: Ears normal, nares patent, oropharynx clear without exudates. Moist mucous membranes. NECK: Normal range of motion, supple without lymphadenopathy, JVD, or masses. LUNGS: Breath sounds equal, clear to auscultation bilaterally. No wheezes, and no crackles. No accessory muscle use. HEART: Regular rate and rhythm, normal S1 and S2 without murmur, rub or gallop. ABDOMEN: Soft, nontender, not distended, normoactive bowel sounds, no guarding, no rebound, no masses. No hepatomegaly or splenomegaly. MUSCULOSKELETAL: Normal range of motion at all joints. No bony deformities or tenderness. No CVA tenderness. UPPER EXTREMITIES: 2+ pulses, warm, well-perfused. No cyanosis. No clubbing. No peripheral edema. LOWER EXTREMITIES: 2+ pulses, warm, well-perfused. No calf tenderness. No peripheral edema. NEUROLOGICAL: Cranial nerves II-XII intact. Normal speech. Normal gait. PSYCHIATRIC: Cooperative. Good eye contact. Appropriate mood and affect. SKIN: Warm, dry, normal turgor, no rashes or lesions noted, normal capillary refill. Laboratory Results - last 24 hr 08/05/17 08/05/17 08/05/17 07:30 11:14 16:17 WBC RBC Hgb Hct MCV MCH MCHC RDW Plt Count MPV Neutrophils % Lymphocytes % Monocytes % Eosinophils % Basophils % Sodium Potassium Chloride Carbon Dioxide Anion Gap BUN Creatinine Creat Clearance w eGFR POC Glucometer 421 359 Random Glucose Calcium Phosphorus Magnesium Iron 92 TIBC 375 Iron Saturation 25 Total Bilirubin AST ALT Alkaline Phosphatase Total Protein Albumin 08/05/17 08/06/17 08/06/17 21:17 06:15 07:55 WBC 17.0 H D RBC 3.53 L Hgb 10.4 L Hct 30.8 L MCV 87.3 MCH 29.5 MCHC 33.8 RDW 11.7 L Plt Count 329 MPV 7.8 Neutrophils % 92.2 H D Lymphocytes % 5.3 L D Monocytes % 2.5 L Eosinophils % 0.0 D Basophils % 0.0 Sodium Potassium Chloride Carbon Dioxide Anion Gap BUN Creatinine Creat Clearance w eGFR POC Glucometer 375 268 Random Glucose Calcium Phosphorus Magnesium Iron TIBC Iron Saturation Total Bilirubin AST ALT Alkaline Phosphatase Total Protein Albumin 08/06/17 08/06/17 07:55 10:57 WBC RBC Hgb Hct MCV MCH MCHC RDW Plt Count MPV Neutrophils % Lymphocytes % Monocytes % Eosinophils % Basophils % Sodium 134 L Potassium 5.2 H Chloride 103 Carbon Dioxide 23 Anion Gap 8 BUN 40 H Creatinine 1.3 Creat Clearance w eGFR 56.31 POC Glucometer 365 Random Glucose 262 H Calcium 9.4 Phosphorus 3.9 D Magnesium 1.7 L Iron TIBC Iron Saturation Total Bilirubin 0.3 D AST 15 ALT 11 Alkaline Phosphatase 32 Total Protein 7.0 Albumin 3.6 ASSESSMENT/PLAN: Hospitalist Screening - Colonoscopy Questionnaire Colonoscopy Questionnaire: Colonoscopy Questionnaire
--- NOTE | 2017-08-06 13:28 | DS ---
Physical Exam: SUBJECTIVE: Patient seen and examined. Patient is a 62 y/o male with a past medical history of hypertension, depression, tobacco smoker, and DM. Patient was admitted for a COPD excerbation management. OBJECTIVE: Vital Signs Period Temp Pulse Resp BP Sys/Mercedes Pulse Ox Last 24 Hr 98.0 F-98.4 F 65-75 19-20 118-171/49-73 94-99 PHYSICAL EXAM GENERAL: The patient is awake, alert, and fully oriented, in no acute distress. HEAD: Normal with no signs of trauma. EYES: PERRL, extraocular movements intact, sclera anicteric, conjunctiva clear. ENT: Ears normal, nares patent, oropharynx clear without exudates, moist mucous membranes. NECK: Trachea midline, full range of motion, supple. LUNGS: Breath sounds equal, clear to auscultation bilaterally, no wheezes, no crackles, no accessory muscle use. HEART: Regular rate and rhythm, S1, S2 without murmur, rub or gallop. ABDOMEN: Soft, nontender, nondistended, normoactive bowel sounds, no guarding, no rebound, no hepatosplenomegaly, no masses. EXTREMITIES: 2+ pulses, warm, well-perfused, no edema. NEUROLOGICAL: Cranial nerves II through XII grossly intact. Normal speech, gait not observed. PSYCH: Normal mood, normal affect. SKIN: Warm, dry, normal turgor, no rashes or lesions noted. LABS Laboratory Results - last 24 hr 08/05/17 08/05/17 08/05/17 07:30 11:14 16:17 WBC RBC Hgb Hct MCV MCH MCHC RDW Plt Count MPV Neutrophils % Lymphocytes % Monocytes % Eosinophils % Basophils % Sodium Potassium Chloride Carbon Dioxide Anion Gap BUN Creatinine Creat Clearance w eGFR POC Glucometer 421 359 Random Glucose Calcium Phosphorus Magnesium Iron 92 TIBC 375 Iron Saturation 25 Total Bilirubin AST ALT Alkaline Phosphatase Total Protein Albumin 08/05/17 08/06/17 08/06/17 21:17 06:15 07:55 WBC 17.0 H D RBC 3.53 L Hgb 10.4 L Hct 30.8 L MCV 87.3 MCH 29.5 MCHC 33.8 RDW 11.7 L Plt Count 329 MPV 7.8 Neutrophils % 92.2 H D Lymphocytes % 5.3 L D Monocytes % 2.5 L Eosinophils % 0.0 D Basophils % 0.0 Sodium Potassium Chloride Carbon Dioxide Anion Gap BUN Creatinine Creat Clearance w eGFR POC Glucometer 375 268 Random Glucose Calcium Phosphorus Magnesium Iron TIBC Iron Saturation Total Bilirubin AST ALT Alkaline Phosphatase Total Protein Albumin 08/06/17 08/06/17 07:55 10:57 WBC RBC Hgb Hct MCV MCH MCHC RDW Plt Count MPV Neutrophils % Lymphocytes % Monocytes % Eosinophils % Basophils % Sodium 134 L Potassium 5.2 H Chloride 103 Carbon Dioxide 23 Anion Gap 8 BUN 40 H Creatinine 1.3 Creat Clearance w eGFR 56.31 POC Glucometer 365 Random Glucose 262 H Calcium 9.4 Phosphorus 3.9 D Magnesium 1.7 L Iron TIBC Iron Saturation Total Bilirubin 0.3 D AST 15 ALT 11 Alkaline Phosphatase 32 Total Protein 7.0 Albumin 3.6 HOSPITAL COURSE: Date of Admission:08/04/17 Date of Discharge: 08/06/17 Minutes to complete discharge: 45 Discharge Summary Reason For Visit: ACUTE EXAC OF CHRONIC BRONCHITIS Current Active Problems Acute exacerbation of chronic bronchitis (Acute) Acute on chronic respiratory failure with hypoxemia (Acute) Anemia (Acute) BPH (benign prostatic hyperplasia) (Acute) COPD exacerbation (Acute) HNP (herniated nucleus pulposus) with myelopathy, cervical (Acute) HTN (hypertension) (Acute) Hyperlipidemia (Acute) Opiate dependence (Acute) Smoker (Acute) Hospital Course: This 62 yr old male with COPD excerbation was admitted with wheexing and shortness of breath. He has been on oxy 2 L while hosptialized After several doses of solumedrol, and ABT, as well as nebulizers, pt is cleared to go home without home oxygen. He will contineu steroids. He underwent a xray of sinusis which is neg for any infection that appears acute thus no need for ABT. Pt discharged to home. Condition: Stable - Instructions Diet, Activity, Other Instructions: Discharge instructions 1. Continue with a low sodium diet 2. Take meds as prescribed. 3. Make appt with Dr. Orr for next week for follow up 4. continue steroids as prescribed and take with food. 5. any worsening of breath, return to ER 6. No smoking. Referrals: Tomas Zuniga MD [Primary Care Provider] - Disposition: HOME - Home Medications Comprehensive Discharge Medication List: Ambulatory Orders Sennosides [Senna Lax] 8.6 mg PO 2 tablets bid tablet 07/24/16 Cefdinir 300 mg PO BID 08/04/17 Cetirizine HCl [Zyrtec -] 10 mg PO DAILY 08/04/17 Docusate Sodium [Colace] 100 mg PO DAILY 08/04/17 Docusate Sodium [Colace] 300 mg PO HS 08/04/17 Insulin Glargine,Hum.rec.anlog [Lantus Solostar PEN (NF)] 18 units SQ AM Metformin HCl [Glucophage] 1,000 mg PO DAILY 08/04/17 Metformin HCl [Glucophage] 500 mg PO HS 08/04/17 Montelukast Na [Singulair -] 10 mg PO HS 08/04/17 Oxycodone HCl 20 mg PO Q6H PRN 08/04/17 Simvastatin 40 mg PO HS 08/04/17 This patient is new to me today: Yes Date on this admission: 08/06/17 Emergency Visit: Yes ED Registration Date: 08/04/17 Care time: The patient presented to the Emergency Department on the above date and was hospitalized for further evaluation of their emergent condition. Critical Care patient: No - Discharge Referral Referred to [facility] No
== END 2017-08-06 14:11 | disposition home or self-care (01) | DRG 140 ==
LOC: FER 11:10 → FM/S 15:16
PROVIDERS: ADMIT Internal Medicine; ATTEND Nurse Practitioner Family
DX: J44.1 Chronic obstructive pulmonary disease with (acute) exacerbation (principal); J44.0 Chronic obstructive pulmonary disease with (acute) lower respiratory infection; J96.01 Acute respiratory failure with hypoxia; J96.02 Acute respiratory failure with hypercapnia; M50.03 Cervical disc disorder with myelopathy, cervicothoracic region; F11.20 Opioid dependence, uncomplicated; E55.9 Vitamin D deficiency, unspecified; F17.210 Nicotine dependence, cigarettes, uncomplicated; G89.29 Other chronic pain; E11.9 Type 2 diabetes mellitus without complications; Z79.84 Long term (current) use of oral hypoglycemic drugs; N40.0 Benign prostatic hyperplasia without lower urinary tract symptoms; I10 Essential (primary) hypertension; E78.5 Hyperlipidemia, unspecified; G47.33 Obstructive sleep apnea (adult) (pediatric); J32.9 Chronic sinusitis, unspecified
CPT/HCPCS: 36415; 70210-TC-FY; 71046-TC-FY; 71250-TC; 80048; 80053; 81003; 82550; 82728; 82962; 83036; 83540; 83550; 83735; 84100; 84484; 85025; 85044; 85379; 93005; 93306-TC; 93970-TC; 94010; 94640; 94761; 99284-25; J1644

== ENCOUNTER 2017-09-23 06:55 | Day surgery (SDC) | payer OTHER ==
[2017-09-21 10:04] VITALS: BMI 28.5
[2017-09-23] MEDS ORDERED: LIDOCAINE HCL/PF 2% SDV 5ML VIAL ONE (07:06)
[2017-09-23] MEDS ORDERED: PROPOFOL 20 ML ONE ×3 (07:06)
[2017-09-23 07:26] VITALS: TEMP 97.8
[2017-09-23 09:47] VITALS: BP 116/78; PULSE 68
--- NOTE | 2017-09-24 11:23 | PATH ---
Surgical Pathology Report Patient Name: LUCILA GERMAN [facility] Rec. #: [id number] /Age/Gender: 1955 (Age: 62) / M Account: [id number] Location: [facility]OS[facility] Taken: 09/23/2017 Received: 09/23/2017 Reported: 09/24/2017 Physicians: Jerman Medina M.D. Specimen(s) Received A: BX DUODENUM B: BX ANTRUM Clinical History Anemia Postoperative diagnosis: Gastritis Final Diagnosis A. DUODENUM, BIOPSY: DUODENAL MUCOSA WITHOUT SIGNIFICANT PATHOLOGIC FINDINGS. B. STOMACH, ANTRUM, BIOPSY: GASTRIC ANTRAL MUCOSA WITH MILD CHRONIC GASTRITIS. IMMUNOHISTOCHEMICAL STAIN FOR H. PYLORI IS NEGATIVE. Electronically Signed Olivia Garrett M.D. Gross Description A. Received in formalin, labeled "duodenum" is a donato, irregular portion of soft tissue measuring 0.8 cm. in greatest dimension. The specimen is submitted in toto in one cassette. B. Received in formalin, labeled "antrum" are 2 donato, irregular portions of soft tissue measuring 0.3 and 0.4 cm. in greatest dimension. The specimens are submitted in toto in one cassette. /09/23/2017 saudi09/23/2017
== END 2017-09-23 09:45 | disposition home or self-care (01) ==
LOC: FASU-ENDO 06:55
PROVIDERS: ATTEND Internal Medicine Gastroenterology
PROC: 0DB68ZX Excision of Stomach, Via Natural or Artificial Opening Endoscopic, Diagnostic (ICD-10-PCS; 2017-09-23)
PROC: 0DJD8ZZ Inspection of Lower Intestinal Tract, Via Natural or Artificial Opening Endoscopic (ICD-10-PCS; principal; 2017-09-23 08:32)
PROC: 0DB98ZX Excision of Duodenum, Via Natural or Artificial Opening Endoscopic, Diagnostic (ICD-10-PCS; 2017-09-23 08:32)
DX: D64.9 Anemia, unspecified (principal); K29.50 Unspecified chronic gastritis without bleeding
CPT/HCPCS: 82962

== ENCOUNTER 2018-01-24 08:49 | Day surgery (SDC) | payer OTHER ==
[2018-01-17 12:30] VITALS: BMI 26.4
--- NOTE | 2018-01-24 07:44 | HP ---
Admitting History and Physical - Admission Chief Complaint: left knee osteoarthritis x years History of Present Illness: 62 year old male presents today in regard to his left knee. Long-standing history of left knee osteoarthritis. Patient complains of pain, limited ROM, difficulty ambulating and difficulty with ADLs. Patient has failed conservative treatment measures including PO medication, activity modification, injections and exercise program. At this point, patient wishes to proceed with surgical intervention - left total knee arthroplasty, MAKOplasty. 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 No: Alzheimer's Cardiovascular: Yes: HTN, Hyperlipdemia. No: AFIB, [place] Pulmonary: Yes: COPD, Pneumonia, Sleep Apnea, Other (CHRONIC SINUSITIS). No: O2 Dependent Renal/: Yes: Renal Inusuff, BPH Heme/Onc: Yes: Anemia Psych: Yes: Depression Musculoskeletal: Yes: Chronic low back pain, Other (CERVICAL SPINE PAIN) Rheumatology: Yes: Other (HNP C-SPINE) ENT: Yes: Sinusitis Endocrine: Yes: Diabetes Mellitus - Past Surgical History Additional Past Surgical History: See written history & physical. - Smoking History Smoking history: Former smoker Have you smoked in the past 12 months: Yes Aproximately how many cigarettes per day: 4 If you are a former smoker, when did you quit?: JULY 2017 - Alcohol/Substance Use Hx Alcohol Use: No - Social History History of Recent Travel: No Home Medications - Allergies Allergies/Adverse Reactions: Allergies Allergy/AdvReac Type Severity Reaction Status Date / Time fentanyl AdvReac Severe SEVERE Verified 01/17/18 13:16 BRADYCARDIA codeine AdvReac Mild Itching Verified 01/17/18 10:51 - Home Medications Home Medications: Ambulatory Orders Sennosides [Senna Lax] 8.6 mg PO 2 tablets bid tablet 07/24/16 Cetirizine HCl [Zyrtec -] 10 mg PO HS 08/04/17 Docusate Sodium [Colace] 100 mg PO BID 08/04/17 Insulin Glargine,Hum.rec.anlog [Lantus Solostar PEN -] 18 units SQ AM 08/04/17 Metformin HCl [Glucophage] 1,000 mg PO DAILY 08/04/17 Metformin HCl [Glucophage] 500 mg PO HS 08/04/17 Montelukast Na [Singulair -] 10 mg PO HS 08/04/17 Oxycodone HCl 20 mg PO Q6H PRN 08/04/17 Simvastatin 40 mg PO DAILY 08/04/17 Albuterol Sulfate [Proair Hfa] 8.5 gm IH Q4H PRN #1 hfa.aer.ad 08/06/17 Nicotine Patch [Nicoderm Patch -] 1 patch TD DAILY #30 patch 08/06/17 Cholecalciferol (Vitamin D3) [Vitamin D3] 5,000 iu PO DAILY 09/21/17 Guaifenesin [Mucinex] 600 mg PO PRN PRN 01/17/18 Review of Systems - Review of Systems Musculoskeletal: reports: Crepitus (left knee), Decreased ROM (left knee), Joint Pain (left knee), Joint Swelling (left knee) Physical Examination Constitutional: Yes: Well Nourished, No Distress Eyes: Yes: Conjunctiva Clear HENT: Yes: Atraumatic, Normocephalic Neck: Yes: Supple Cardiovascular: Yes: Regular Rate and Rhythm Respiratory: Yes: Regular Gastrointestinal: Yes: Soft ...Rectal Exam: Yes: Deferred Musculoskeletal: Yes: Joint Stiffness (left knee), Joint Swelling (left knee) Assessment/Plan 62 year old male presents today in regard to his left knee. Long-standing history of left knee osteoarthritis. Patient complains of pain, limited ROM, difficulty ambulating and difficulty with ADLs. Patient has failed conservative treatment measures including PO medication, activity modification, injections and exercise program. At this point, patient wishes to proceed with surgical intervention - left total knee arthroplasty, MAKOplasty. Pros, cons, risks, benefits and alternatives of a left total knee arthroplasty, MAKOplasty were discussed at length. Patient confirms his understanding and consents to proceed with a left total knee arthroplasty, MAKOplasty.
[2018-01-24 09:22] VITALS: BP 143/76; PULSE 67; TEMP 97.7
[2018-01-24 09:57] LABS: INR 1.58 (0.82-1.09); PROTHROMBIN TIME (PATIENT) 17.5 SEC (10.2-13.0)
[2018-01-24] MEDS ORDERED: PANTOPRAZOLE 40 MG TABLET (FP) ONE (09:57)
[2018-01-24] MEDS ORDERED: CELECOXIB 200 MG CAPSULE ONE (09:58)
[2018-01-24] MEDS ORDERED: GABAPENTIN 300 MG CAPSULE (FP) ONE (09:58)
[2018-01-24] MEDS ORDERED: oxyCODONE HCL 10 MG SUSTAINED ACTING TABLET ONE (09:58)
[2018-01-24] MEDS ORDERED: BUPIVACAINE LIPOSOME/PF (EXPAREL) 266 MG/20 ML VIAL ONE (10:04)
[2018-01-24] MEDS ORDERED: MIDAZOLAM HCL 2 MG/2 ML SINGLE DOSE VIAL ONE (10:04)
[2018-01-24] MEDS ORDERED: TRANEXAMIC ACID 1000 MG/10 ML VIAL IVPUSH ONE (11:05)
[2018-01-24] MEDS ORDERED: ROPIVICAINE 0.2%/MORPH PF/KETOROLAC - 51ML DISP.SYRINGE IA ONE (11:05)
[2018-01-24] MEDS ORDERED: CEFAZOLIN 2 GM in DEXTROSE 5%-WATER - 50 ML IVPB ONE (11:05)
--- NOTE | 2018-01-25 20:52 | PN ---
Progress Note (short form) - Note Progress Note: Knee replacement canceled due to INR 1.58 this morning. Pt will f/u with Dr. Wakefield to arrange for hematology workup. Will be rescheduled when cleared.
== END 2018-01-24 12:30 | disposition home or self-care (01) ==
LOC: FM/S 08:49 → UNDOADMIN 08:49 → FASUSAT 08:49 → EDSTATUS 11:00 → FASUSAT 12:30 → UNDODISIN 12:30 → FASUSAT 14:02
PROVIDERS: ATTEND Student in an Organized Health Care Education/Training Program
PROC: 0SRD0J9 Replacement of Left Knee Joint with Synthetic Substitute, Cemented, Open Approach (ICD-10-PCS; principal; 2018-01-24)
DX: Z53.09 Procedure and treatment not carried out because of other contraindication (principal); M17.12 Unilateral primary osteoarthritis, left knee; I10 Essential (primary) hypertension; E78.5 Hyperlipidemia, unspecified; E11.9 Type 2 diabetes mellitus without complications; J44.9 Chronic obstructive pulmonary disease, unspecified; G47.30 Sleep apnea, unspecified; N28.9 Disorder of kidney and ureter, unspecified; N40.0 Benign prostatic hyperplasia without lower urinary tract symptoms; M54.5 Low back pain; G89.29 Other chronic pain; Z87.891 Personal history of nicotine dependence; Z79.4 Long term (current) use of insulin; Z79.84 Long term (current) use of oral hypoglycemic drugs
CPT/HCPCS: 36415; 82962; 85610

== ENCOUNTER 2021-06-15 11:34 | Emergency (ER) | payer OTHER ==
[2021-06-15 11:48] VITALS: BP 148/70; PULSE 71; TEMP 97.8; BMI 26.0
[2021-06-15] MEDS ORDERED: ACETAMINOPHEN 500 MG TABLET (FP) PO ONE (11:58)
[2021-06-15] MEDS ORDERED: ACETAMINOPHEN 500 MG TABLET (FP) ONE (12:12)
== END 2021-06-15 13:07 | disposition home or self-care (01) ==
LOC: FER 11:34
DX: S52.201A Unspecified fracture of shaft of right ulna, initial encounter for closed fracture (principal); W10.8XXA Fall (on) (from) other stairs and steps, initial encounter
CPT/HCPCS: 71101-TC-RT-FY; 73090-TC-RT-FY; 99284-25

== ENCOUNTER 2022-02-16 04:27 | Day surgery (SDC) | payer OTHER ==
[2022-02-13 16:34] VITALS: BMI 26.7
[2022-02-16] MEDS ORDERED: MIDAZOLAM HCL 2 MG/2 ML SINGLE DOSE VIAL ONE (11:49)
[2022-02-16] MEDS ORDERED: KETOROLAC TROMETHAMINE 30 MG/1 ML VIAL ONE (11:49)
[2022-02-16] MEDS ORDERED: MIDAZOLAM HCL 2 MG/2 ML SINGLE DOSE VIAL IVPUSH ONE (12:10)
[2022-02-16] MEDS ORDERED: SODIUM CHLORIDE 500 ML IV SCH (12:10)
[2022-02-16] MEDS ORDERED: KETOROLAC TROMETHAMINE 30 MG/1 ML VIAL IVPUSH ONE (12:10)
[2022-02-16 18:07] VITALS: BP 142/75; RESP 20; TEMP 97.2
[2022-02-16 18:13] VITALS: PULSE 70
== END 2022-02-16 15:30 | disposition home or self-care (01) ==
LOC: JRADIR 04:27
PROVIDERS: ATTEND Internal Medicine Hematology & Oncology
PROC: 07DR3ZX Extraction of Iliac Bone Marrow, Percutaneous Approach, Diagnostic (ICD-10-PCS; principal; 2022-02-16)
DX: D64.9 Anemia, unspecified (principal)
CPT/HCPCS: 20225; 82962; 88300-TC

== ENCOUNTER 2023-08-19 04:44 | Day surgery (SDC) | payer OTHER, MEDICARE ==
[2023-08-18 10:46] VITALS: BMI 28.5
[2023-08-19 10:36] VITALS: RESP 18
[2023-08-19 13:22] VITALS: BP 149/73; PULSE 78; TEMP 99.3
[2023-08-21 14:11] LABS: BODY FLUID ALBUMIN 2.3 g/dL (Not Estab.)
== END 2023-08-19 13:58 | disposition home or self-care (01) ==
LOC: JRADIR 04:44
PROVIDERS: ATTEND Specialist
PROC: 0W993ZX Drainage of Right Pleural Cavity, Percutaneous Approach, Diagnostic (ICD-10-PCS; principal; 2023-08-19)
DX: J90 Pleural effusion, not elsewhere classified (principal)
CPT/HCPCS: 32555; 76942; 82042; 82150; 82465; 82945; 82962; 83615; 83986; 84478; 87070; 87075; 87102; 87116; 87205; 87206; 87210; 88108; 88305-TC

== ENCOUNTER 2023-10-29 13:50 | Emergency (ER) | payer OTHER, MEDICARE ==
[2023-10-29 14:07] VITALS: BP 134/69; PULSE 90; RESP 20; TEMP 98.5; BMI 26.4
[2023-10-29] MEDS ORDERED: LIDOCAINE HCL 2% (20ML MULTI-DOSE VIAL) ONE (15:18)
[2023-10-29] MEDS: LIDOCAINE HCL 2% (50ML VIAL) SQ ONE (15:25)
[2023-10-29] MEDS ORDERED: SULFAMETHOXAZOLE/TRIMETHOPRIM 800MG/160MG D.S. TABLET ONE (16:12)
[2023-10-29] MEDS: SULFAMETHOXAZOLE/TRIMETHOPRIM 800MG/160MG D.S. TABLET PO ONE (16:14)
[2023-10-29] MEDS ORDERED: oxyCODONE HCL 5 MG TABLET ONE (16:15)
[2023-10-29] MEDS: oxyCODONE HCL 5 MG TABLET PO ONE (16:17)
== END 2023-10-29 16:25 | disposition home or self-care (01) ==
LOC: FER 13:50
PROC: 0H96XZZ Drainage of Back Skin, External Approach (ICD-10-PCS; principal; 2023-10-29)
DX: L02.212 Cutaneous abscess of back [any part, except buttock and flank] (principal)
CPT/HCPCS: 99283-25

== ENCOUNTER 2024-03-06 03:52 | Day surgery (SDC) | payer OTHER, MEDICARE ==
[2024-03-01 18:03] VITALS: BMI 25.0
[2024-03-06] MEDS: BUPIVACAINE HCL/PF 0.5% (5 MG/ML) 30 ML VIAL IJ ONE
[2024-03-06 06:33] VITALS: RESP 16
[2024-03-06] MEDS ORDERED: LIDOCAINE HCL 1%, 10 MG/ML (20ML VIAL) ONE (07:16)
[2024-03-06] MEDS ORDERED: BUPIVACAINE HCL/PF 0.5% (5MG/ML) 10 ML VIAL ONE (07:16)
[2024-03-06] MEDS ORDERED: BUPIVACAINE HCL/PF 0.25% (2.5MG/ML) 10 ML VIAL ONE ×2 (07:34→07:41)
[2024-03-06] MEDS ORDERED: PROPOFOL 20 ML ONE (07:46)
[2024-03-06] MEDS ORDERED: LIDOCAINE HCL/PF 2% SDV 5ML VIAL ONE (07:46)
[2024-03-06] MEDS ORDERED: MIDAZOLAM HCL 2 MG/2 ML SINGLE DOSE VIAL ONE ×2 (07:57→08:18)
[2024-03-06] MEDS ORDERED: HEPARIN NA (PORCINE) 5,000 UNITS/ML 1ML VIAL ONE (08:18)
[2024-03-06] MEDS: LIDOCAINE HCL 1%, 10 MG/ML (20ML VIAL) NR ONE ×2 (08:18)
[2024-03-06] MEDS: BUPIVACAINE HCL/PF 0.25% (2.5MG/ML) 10 ML VIAL IJ ONE ×2 (08:18)
[2024-03-06] MEDS: ceFAZolin SODIUM 1 GM VIAL IVPB ONE (08:18)
[2024-03-06] MEDS ORDERED: BACITRACIN ZINC 15 GM TUBE TOPICAL OINTMENT ONE (08:25)
[2024-03-06] MEDS: BACITRACIN ZINC 15 GM TUBE TOPICAL OINTMENT TP ONE (08:40)
[2024-03-06] MEDS ORDERED: ONDANSETRON 4 MG/2 ML VIAL IVPUSH PRN (09:30)
[2024-03-06] MEDS ORDERED: oxyCODONE HCL 5 MG TABLET PO PRN (09:30)
[2024-03-06 10:27] VITALS: BP 148/70; PULSE 72; TEMP 97.2
== END 2024-03-06 10:00 | disposition home or self-care (01) ==
LOC: JASU-SURG 03:52
PROVIDERS: ATTEND Surgery
PROC: 0HB6XZZ Excision of Back Skin, External Approach (ICD-10-PCS; principal; 2024-03-06 08:00)
DX: L72.3 Sebaceous cyst (principal)
CPT/HCPCS: 82962; 88304-TC; J1644